=== PATIENT | female | born 1945 | race Asian ===

== ENCOUNTER 2023-11-11 08:59 | Emergency (ER) | payer OTHER ==
[2023-11-11 09:09] VITALS: BP 125/81; PULSE 84; RESP 16; TEMP 97.7; BMI 26.9
[2023-11-11] MEDS ORDERED: ACETAMINOPHEN INJECTION 100 ML ONE (10:14)
[2023-11-11] MEDS: SODIUM CHLORIDE 1,000 ML IV STA (10:40)
[2023-11-11] MEDS: ACETAMINOPHEN 1000 MG/100 ML BAG IVPB ONE (10:48)
[2023-11-11 10:52] LABS: BASO % 0.6 % (0-2.0); EOS % 3.8 % (0-4.5); HEMATOCRIT 40.6 % (32.4-45.2); HEMOGLOBIN 13.4 GM/dL (10.7-15.3); LYMPH % 30.9 % (8-40); MCH 28.4 pg (25.7-33.7); MEAN CELL VOLUME 86.1 fl (80-96); MEAN PLT VOLUME 9.6 fl (7.5-11.1); MONO % 7.6 % (3.8-10.2); NEUT % 57.1 % (42.8-82.8); PLATELET COUNT 216 10^3/uL (134-434); RBC 4.71 M/mm3 (3.60-5.2); RDW 14.8 % (11.6-15.6); URINE APPEARANCE CLEAR; URINE BILIRUBIN NEGATIVE (NEGATIVE); URINE COLOR YELLOW; URINE GLUCOSE (UA) NEGATIVE (NEGATIVE); URINE KETONE NEGATIVE (NEGATIVE); URINE LEUK ESTERASE NEGATIVE (NEGATIVE); URINE NITRITE NEGATIVE (NEGATIVE); URINE PROTEIN NEGATIVE (NEGATIVE); URINE UROBILINOGEN 0.2 mg/dL (0.2-1.0); WHITE BLOOD COUNT 7.9 K/mm3 (4.0-10.0)
[2023-11-11 11:28] LABS: POTASSIUM 4.1 mmol/L (3.5-5.1)
[2023-11-11 11:30] LABS: ALBUMIN 3.5 g/dl (3.4-5.0); CALCIUM 9.6 mg/dL (8.5-10.1)
[2023-11-11 11:33] LABS: CREATININE 0.9 mg/dL (0.55-1.3)
[2023-11-11 11:35] LABS: BILIRUBIN,TOTAL 0.6 mg/dL (0.2-1); TOT PROT 7.5 g/dl (6.4-8.2)
[2023-11-11] MEDS ORDERED: KETOROLAC TROMETHAMINE 30 MG/1 ML VIAL ONE (13:09)
[2023-11-11] MEDS ORDERED: LIDOCAINE 5% TOPICAL PATCH ONE (13:09)
[2023-11-11] MEDS: KETOROLAC TROMETHAMINE 30 MG/1 ML VIAL IVPUSH ONE (13:21)
[2023-11-11] MEDS: LIDOCAINE 4% PATCH TP ONE (13:21)
[2023-11-11 13:27] LABS: HIV INTERPRETATION NEGATIVE (NEGATIVE)
[2023-11-11] MEDS ORDERED: LIDOCAINE PATCH REMOVAL MC SCH (22:00)
== END 2023-11-11 16:04 | disposition home or self-care (01) ==
LOC: JER 08:59
PROC: 3E033NZ Introduction of Analgesics, Hypnotics, Sedatives into Peripheral Vein, Percutaneous Approach (ICD-10-PCS; principal; 2023-11-11)
PROC: 3E0333Z Introduction of Anti-inflammatory into Peripheral Vein, Percutaneous Approach (ICD-10-PCS; 2023-11-11)
PROC: 3E0337Z Introduction of Electrolytic and Water Balance Substance into Peripheral Vein, Percutaneous Approach (ICD-10-PCS; 2023-11-11)
DX: S39.012A Strain of muscle, fascia and tendon of lower back, initial encounter (principal); M54.16 Radiculopathy, lumbar region; R10.31 Right lower quadrant pain; X58.XXXA Exposure to other specified factors, initial encounter; Z20.822 Contact with and (suspected) exposure to COVID-19
CPT/HCPCS: 0241U-QW; 36415; 71046-TC-FY; 74177-TC; 80053; 81003; 83605; 83690; 85025; 86803; 87086; 87389; 99285-25; J0131; Q9967